=== PATIENT | male | born 1960 | race Caucasian/White ===

== ENCOUNTER 2017-02-22 08:35 | Inpatient (IN) | payer MEDICAID ==
[2017-02-22] MEDS ORDERED: NS 1,000 ML IV ONE ×2 (09:04→10:11)
--- NOTE | 2017-02-22 09:07 | EDPHY ---
H & P Time Seen by Provider: 02/22/17 08:58 HPI/ROS: CHIEF COMPLAINT: Abdominal pain HISTORY OF PRESENT ILLNESS: 56-year-old male presents to the emergency department with left lower quadrant abdominal pain that began 2 days ago. The patient states the pain was gradual in onset and has been constant. He feels that it is getting much worse. He has been unable to eat because he does not have much of an appetite. No nausea or vomiting. No diarrhea. Last bowel was 2 days ago. Subjective fevers and chills. No back pain. No urinary symptoms. He has never had pain like this in the past. No reported trauma. REVIEW OF SYSTEMS: Constitutional: Subjective fevers, chills Eyes: No double or blurry vision. ENT: No sore throat. Respiratory: No cough, no shortness of breath. Cardiac: No chest pain. Gastrointestinal: Abdominal pain as above. No vomiting or diarrhea Genitourinary: No dysuria. Musculoskeletal: No neck or back pain. Skin: No rashes. Neurological: No headache. Past Medical/Surgical History: Appendectomy, prostatitis Social History: and lives in [place] Smoking Status: Current every day smoker Physical Exam: General Appearance: Alert, no distress. Afebrile. No apparent distress. Eyes: Pupils equal and round. Extraocular motions are all intact. ENT: Mouth: Mucous membranes moist. Respiratory: No wheezing, rhonchi, or rales, lungs are clear to auscultation. Cardiovascular: Regular rate and rhythm. Gastrointestinal: Abdomen is soft. Tenderness with palpation in the left lower quadrant. There is no masses palpated. He does have some rebound and some voluntary guarding. No CVA tenderness bilaterally. Neurological: Alert and oriented x 3, cranial nerves II through XII grossly intact Skin: Warm and dry, no rashes. Musculoskeletal: Nontender to palpate along the cervical, thoracic or lumbar spine. Neck is supple. Extremities: Full range of motion and no peripheral edema. Psychiatric: Patient is oriented X 3, there is no agitation. Constitutional: Initial Vital Signs Temperature (C) 36.9 C 02/22/17 08:42 Heart Rate 58 L 02/22/17 08:42 Respiratory Rate 16 02/22/17 08:42 Blood Pressure 108/70 02/22/17 08:42 O2 Sat (%) 98 02/22/17 08:42 O2 Delivery Mode Room Air Allergies/Adverse Reactions: IV CONTRAST Allergy (Uncoded 02/22/17 08:46) Home Medications: Medication Instructions Recorded Flexeril Unk Dose 1 each PO DAILY PRN 02/22/17 Gabapentin [Neurontin 300 MG (*)] 300 mg PO QID 02/22/17 Medical Decision Making - Diagnostics Imaging Results: Imaging Impressions Abdomen CT 02/22/17 09:38 Impression: Acute sigmoid colon diverticulitis with a possible early pericolonic phlegmon, but no evidence of mechanical obstruction. Clinical correlation and follow-up to ensure resolution are recommended. Findings were discussed with LUIS GAMEZ PA-C at 11:00 AM, on 02/22/2017. Imaging: Discussed imaging studies w/ director call Radiologist ED Course/Re-evaluation: An IV was established. The patient was not initially given pain medication as he drove himself to the emergency department. He was kept NPO. Current was normal. CT imaging of the abdomen and pelvis revealed sigmoid diverticulitis. Patient does have possible phlegmon development. No obvious distinct abscess although difficult to appreciate this since contrast dye was not given to the patient. The patient continued to have ongoing pain. He was given IV pain medications. Patient will be admitted. He was given IV Levaquin and IV metronidazole. He will be admitted to the hospitalist. Differential Diagnosis: Including but not limited to diverticulitis, diverticulosis, urinary tract infection, pyelonephritis, kidney stone, volvulus, bowel obstruction - Data Points Laboratory Results: Laboratory Results 02/22/17 08:55 02/22/17 09:04 02/22/17 02/22/17 02/22/17 10:30 09:04 08:55 WBC 12.61 10^3/uL H 10^3/uL (3.80-9.50) RBC 4.89 10^6/uL 10^6/uL (4.40-6.38) Hgb 15.3 g/dL g/dL (13.7-17.5) Hct 42.8 % % (40.0-51.0) MCV 87.5 fL fL (81.5-99.8) MCH 31.3 pg pg (27.9-34.1) MCHC 35.7 g/dL g/dL (32.4-36.7) RDW 12.7 % % (11.5-15.2) Plt Count 231 10^3/uL 10^3/uL (150-400) MPV 10.3 fL fL (8.7-11.7) Neut % (Auto) 77.1 % H % (39.3-74.2) Lymph % (Auto) 12.1 % L % (15.0-45.0) [place] % (Auto) 9.9 % % (4.5-13.0) Eos % (Auto) 0.3 % L % (0.6-7.6) Baso % (Auto) 0.2 % L % (0.3-1.7) Nucleat RBC Rel Count 0.0 % % (0.0-0.2) Absolute Neuts (auto) 9.73 10^3/uL H 10^3/uL (1.70-6.50) Absolute Lymphs (auto) 1.52 10^3/uL 10^3/uL (1.00-3.00) Absolute Monos (auto) 1.25 10^3/uL H 10^3/uL (0.30-0.80) Absolute Eos (auto) 0.04 10^3/uL 10^3/uL (0.03-0.40) Absolute Basos (auto) 0.02 10^3/uL 10^3/uL (0.02-0.10) Absolute Nucleated RBC 0.00 10^3/uL 10^3/uL (0-0.01) Immature Gran % 0.4 % % (0.0-1.1) Immature Gran # 0.05 10^3/uL 10^3/uL (0.00-0.10) Sodium 138 mEq/L mEq/L (134-144) Potassium 4.1 mEq/L mEq/L (3.5-5.2) Chloride 103 mEq/L mEq/L (97-110) Carbon Dioxide 24 mEq/l mEq/l (22-31) Anion Gap 11 mEq/L mEq/L (8-16) BUN 9 mg/dL mg/dL (7-23) Creatinine 1.0 mg/dL mg/dL (0.7-1.3) Estimated GFR > 60 Glucose 93 mg/dL mg/dL (70-100) Calcium 9.5 mg/dL mg/dL (8.5-10.4) Urine Color YELLOW Urine Appearance CLEAR Urine pH 6.0 (5.0-7.5) Ur Specific [place] 1.018 (1.002-1.030) Urine Protein NEGATIVE (NEGATIVE) Urine Ketones TRACE H (NEGATIVE) Urine Blood 1+ H (NEGATIVE) Urine Nitrate NEGATIVE (NEGATIVE) Urine Bilirubin NEGATIVE (NEGATIVE) Urine Urobilinogen NEGATIVE EU EU (0.2-1.0) Ur Leukocyte Esterase NEGATIVE (NEGATIVE) Urine RBC 1-3 /hpf /hpf (0-3) Urine WBC 1-3 /hpf /hpf (0-3) Ur Epithelial Cells NONE SEEN /lpf /lpf (NONE-1+) Urine Mucus TRACE /lpf /lpf (NONE-1+) Urine Glucose NEGATIVE (NEGATIVE) Medications Given: Sodium Chloride (Ns) 1,000 mls @ 125 mls/hr IV CONT ERIC Stop: 08/21/17 15:29 Last Admin: 02/22/17 16:20 Dose: 1,000 mls Discontinued Medications Hydromorphone HCl (Dilaudid) 0.5 mg IVP EDNOW ONE Stop: 02/22/17 11:19 Last Admin: 02/22/17 11:40 Dose: 0.5 mg Sodium Chloride (Ns) 1,000 mls @ 0 mls/hr IV EDNOW ONE; Wide Open PRN Reason: Protocol Stop: 02/22/17 09:05 Last Admin: 02/22/17 09:14 Dose: 1,000 mls Sodium Chloride (Ns) 1,000 mls @ 0 mls/hr IV ONCE ONE PRN Reason: Wide Open Stop: 02/22/17 10:12 Last Admin: 02/22/17 10:14 Dose: 1,000 mls Levofloxacin/Dextrose (Levaquin 750 Mg (Premix)) 150 mls @ 100 mls/hr IV EDNOW ONE PRN Reason: Protocol Stop: 02/22/17 12:47 Last Admin: 02/22/17 12:40 Dose: 150 mls Metronidazole/Sodium Chloride (Flagyl 500 Mg (Premix)) 100 mls @ 100 mls/hr IV EDNOW ONE PRN Reason: Protocol Stop: 02/22/17 12:16 Last Admin: 09/13/17 11:40 Dose: 100 mls Departure - Departure Disposition: [facility] Inpatient Acute Clinical Impression: Diverticulitis Qualifiers: Diverticulitis site: large intestine Diverticulitis bleeding: without bleeding Diverticulitis complication: without perforation or abscess Qualified Code(s): K57.32 - Diverticulitis of large intestine without perforation or abscess without bleeding Condition: Good
[2017-02-22 09:12] LABS: % IMMATURE GRANULYOCYTES 0.4 % (0.0-1.1); ABSOLUTE IMMATURE GRANULOCYTES 0.05 10^3/uL (0.00-0.10); ADD DIFF? NO; ADD MORPH? NO; ADD SCAN? NO; ATYPICAL LYMPHOCYTE FLAG 10 (0-99); FRAGMENT RBC FLAG 0 (0-99); HEMATOCRIT 42.8 % (40.0-51.0); HEMOGLOBIN 15.3 g/dL (13.7-17.5); LEFT SHIFT FLG 0 (0-99); LIPEMIA HEMOLYSIS FLAG 90 (0-99); MEAN CELL HEMOGLOBIN 31.3 pg (27.9-34.1); MEAN CELL HEMOGLOBIN CONCENTR. 35.7 g/dL (32.4-36.7); MEAN CELL VOLUME 87.5 fL (81.5-99.8); MEAN PLATELET VOLUME 10.3 fL (8.7-11.7); PLATELET CLUMPS FLAG 10 (0-99); PLATELET COUNT 231 10^3/uL (150-400); RED BLOOD CELL COUNT 4.89 10^6/uL (4.40-6.38); RED CELL DISTRIBUTION WIDTH 12.7 % (11.5-15.2)
[2017-02-22 09:26] LABS: ANION GAP 11 mEq/L (8-16); CALCIUM 9.5 mg/dL (8.5-10.4); CARBON DIOXIDE 24 mEq/l (22-31); CHLORIDE 103 mEq/L (97-110); GLOMERULAR FILTRATION RATE > 60; GLUCOSE 93 mg/dL (70-100); POTASSIUM 4.1 mEq/L (3.5-5.2); SODIUM 138 mEq/L (134-144)
[2017-02-22] MEDS ORDERED: IOPAMIDOL (ISOVUE-300) 100 ML BTL ONE (09:52)
[2017-02-22 10:45] LABS: COLOR YELLOW; LEUKOCYTE ESTERASE,URINE NEGATIVE (NEGATIVE); NITRITE,URINE NEGATIVE (NEGATIVE)
[2017-02-22 10:46] LABS: MUCUS TRACE /lpf (NONE-1+)
[2017-02-22] MEDS ORDERED: HYDROmorphONE/DILAUDID 1 MG/ML INJ IVP ONE (11:18)
[2017-02-22] MEDS ORDERED: ONDANSETRON DISINTEGRATING 4 MG TAB PO PRN (15:13)
[2017-02-22] MEDS ORDERED: ACETAMINOPHEN 325 MG TAB PO PRN (15:13)
[2017-02-22] MEDS ORDERED: ONDANSETRON 4 MG/2 ML VIAL IVP PRN (15:13)
--- NOTE | 2017-02-22 15:57 | PDCONSULT ---
Curer Acid Drum Note: CC: abd pain HPI: Mr. Curiel is a 56 y/o male with a 2 day hx of lower abd pain that started after a bout of non bloody diarrhea. He presented to the ED today and a CT showed diverticulitis and he was admitted for IV antibiotics. Dr. Alford evaluated him and requested surgical consultation. PMH: appendectomy/hx prostatitis prior heavy drinker meds: Flexeril/Neurontin all: pt reports IV Contrast caused a thrombophlebitis at the injection site/ tolerated IV contrast here this morning SH: lives in [place] ROS: no dysuria, hematuria, pneumaturia last colonoscopy 5 years ago PE: 58-132/70-16-37.7 Pleasant middle aged male in mild distress Abd: soft, distended, tender LLQ with guarding, localized liver edge palpable below costal margin wbc. 12K CT reviewed: sigmoid diverticulitis with focal perforation/no abscess no significant peritoneal fluid, mild atherosclerosis aorto-iliac calcification. Imp: acute diverticulitis with contained perforation/no signs of diffuse peritonitis yet. Rec: IV antibiotics/bowel rest/serial exam check venous lactate
[2017-02-22] MEDS: NS 1,000 ML IV SCH (16:20)
[2017-02-22 16:30] LABS: ALBUMIN 3.8 g/dL (3.5-5.0); BILIRUBIN,TOTAL 0.6 mg/dL (0.1-1.4); BILIRUBIN-CONJUGATED 0.3 mg/dL (0.0-0.5); BILIRUBIN-UNCONJUGATED 0.3 mg/dL (0.0-1.1); TOTAL PROTEIN 5.8 g/dL (6.3-8.2)
--- NOTE | 2017-02-22 16:38 | GHP ---
[f rep st] HISTORY AND PHYSICAL DATE OF ADMISSION: 02/22/2017 CHIEF COMPLAINT: Abdominal pain, diverticulitis. HISTORY OF PRESENT ILLNESS: A 56-year-old male with a history of prior alcohol abuse, presenting with abdominal pain for the last couple days. States that he developed an episode of watery diarrhea with left-sided abdominal pain, cramping in nature. Since that time, he has not been feeling well. He has been having subjective fevers, chills, and sweats. The pain is intermittent. He has not had further diarrhea. No blood in the stool. No nausea or vomiting. Has not had an appetite, thus has had decreased p.o. intake. No cough. No dysuria or urinary frequency. Has a neuropathy at baseline. REVIEW OF SYSTEMS: I completed a 10-point review of systems; negative except as noted in HPI. PAST MEDICAL HISTORY: Neuropathy (he states related to alcohol) and history of alcohol abuse. SURGICAL HISTORY: Appendectomy. SOCIAL HISTORY: Lives in [place]. He frames pictures for a living. Was a significant drinker for 20 years, quit 3 years ago. Just started smoking tobacco 6 months ago. Denies illicit's. FAMILY HISTORY: Father with Alzheimer's. MEDICATIONS: See medication reconciliation. ALLERGIES: None. PHYSICAL EXAMINATION: VITAL SIGNS: Temperature 37.7, blood pressure 132/70, heart rate 50s to 70s, respirations 16, and 99% on room air. GENERAL: Well appearing. Lying in bed in no acute distress. HEENT: PERRLA. EOMI. Oropharynx clear. Mildly dry mucous membranes. CV: Regular rate and rhythm. No murmurs, gallops, or rubs. LUNGS: Clear to auscultation bilaterally. ABDOMEN: Soft. Significant tenderness, left lower quadrant and positive rebound with palpation and auscultation with my stethoscope. Quiet bowel sounds. : No suprapubic tenderness. MUSCULOSKELETAL: 5/5 upper and lower extremity strength. NEURO: 2 through 12 intact. PSYCH: Alert and oriented x3. LABORATORY DATA: WBC 12, hemoglobin 15, hematocrit 42, platelets 231. Lactate is pending. Sodium 138, potassium 4.1, chloride 103, gap 9, creatinine 1, glucose 93. LFTs pending. UA: Trace blood. Abdominal CT: Acute sigmoid diverticulitis with possible early pericolonic phlegmon, but no evidence of mechanical obstruction. ASSESSMENT AND PLAN: 1. Acute diverticulitis: elevated white count and significant pain on exam. Stat lactate. Dr. Manzo with surgery will evaluate. Clear liquids. IV Flagyl and Levaquin. There is no overt abscess, but evidence of phlegmon on CT. If symptoms progress, may need surgical exploration. 2. Leukocytosis: due to #1. afebrile. If fevers, will culture. 3. Acute abdominal pain secondary to diverticulitis. IV Dilaudid p.r.n. Diet: N.p.o. IV fluids. 4. Deep vein thrombosis prophylaxis: Sequential compression devices. DISPOSITION: Patient warrants inpatient admission given the acute diverticulitis and abdominal pain warranting IV antibiotics and pain control. /[id number]/MODL MTDD
[2017-02-22] MEDS: PIPERACILLIN/TAZO 4.5 GM/DEX 100 ML IV SCH ×2 (17:42→21:36)
[2017-02-22] MEDS: HYDROmorphONE/DILAUDID 1 MG/ML INJ IVP PRN ×2 (17:57→22:55)
[2017-02-22] MEDS ORDERED: FLEXERIL PO PRN (17:59)
[2017-02-22] MEDS: GABAPENTIN 300 MG CAP PO SCH (21:36)
[2017-02-23 05:49] LABS: HEMATOCRIT 38.8 % (40.0-51.0); HEMOGLOBIN 13.3 g/dL (13.7-17.5); MEAN CELL HEMOGLOBIN 30.4 pg (27.9-34.1); MEAN CELL HEMOGLOBIN CONCENTR. 34.3 g/dL (32.4-36.7); MEAN CELL VOLUME 88.8 fL (81.5-99.8); RED BLOOD CELL COUNT 4.37 10^6/uL (4.40-6.38); RED CELL DISTRIBUTION WIDTH 12.7 % (11.5-15.2)
[2017-02-23] MEDS: PIPERACILLIN/TAZO 4.5 GM/DEX 100 ML IV SCH ×3 (05:49→21:23)
[2017-02-23] MEDS: NS 1,000 ML IV SCH (05:49)
[2017-02-23] MEDS: GABAPENTIN 300 MG CAP PO SCH ×2 (05:49→12:44)
--- NOTE | 2017-02-23 06:39 | PDCONSULT ---
Wire Straightener Note: Moisés feels a little better. He remains afebrile. His wbc is normal and his venous lactate is normal. He remains tender locally in the LLQ with guarding. I would continue IV Zosyn and clear liquids. Lucio Manzo MD, FACS
[2017-02-23] MEDS ORDERED: CYCLOBENZAPRINE 10 MG TAB PO PRN ×2 (07:05→12:10)
[2017-02-23] MEDS: HYDROmorphONE/DILAUDID 1 MG/ML INJ IVP PRN (08:35)
[2017-02-23] MEDS ORDERED: oxyCODONE IR 5 MG TAB PO PRN (10:49)
[2017-02-23] MEDS: GABAPENTIN 400 MG CAP PO SCH ×3 (12:37→21:23)
--- NOTE | 2017-02-23 13:30 | HOSPPROG ---
Hospitalist Progress Note Assessment/Plan: #Acute diverticulitis: still with pain. Cont IV Zosyn and clear liquids. Negative lactate #Acute abd pain: due to above. PRN opioids #Chronic neuropathy: due to prior Etoh. Gabapentin #h/o Etoh abuse: quit 3 years ago #Diet: clears #DVT: SCDs #Disp: warrants inpatient admission with acute diverticulitis Subjective: 610 LLQ pain Objective: Vital Signs Temp Pulse Resp BP Pulse Ox 36.8 C 48 L 12 104/62 95 02/23/17 11:57 02/23/17 11:57 02/23/17 11:57 02/23/17 11:57 02/23/17 11:57 Laboratory Results 02/23/17 05:06 02/22/17 02/23/17 02/24/17 05:59 05:59 05:59 Intake Total 825 Output Total 2550 Balance -1725 - Physical Exam Constitutional: other Eyes: PERRL Ears, Nose, Mouth, Throat: moist mucous membranes Cardiovascular: regular rate and rhythym, no murmur, rub, or gallop Respiratory: no respiratory distress, no rales or rhonchi Gastrointestinal: normoactive bowel sounds, other (point TTP LLQ, guarding) Genitourinary: no bladder fullness Skin: warm Musculoskeletal: full muscle strength Neurologic: AAOx3, CN II-XII Intact Psychiatric: interacting appropriately ICD10 Worksheet Patient Problems: Problems Problem Status Onset Diverticulitis Acute
--- NOTE | 2017-02-23 15:03 | ASMTCMCOM ---
CM Note CM Note Notes: Reviewed chart for poc and discharge needs. No needs identified at this time. Anticipate home with family when medically stable. Case management available if needs arise. Date Signed: 02/23/2017 03:02 PM Electronically Signed By:Tiffanie Barry RN
[2017-02-23] MEDS ORDERED: GABAPENTIN 400 MG CAP PO SCH (16:00)
[2017-02-24] MEDS: PIPERACILLIN/TAZO 4.5 GM/DEX 100 ML IV SCH ×2 (06:01→14:39)
[2017-02-24] MEDS: GABAPENTIN 400 MG CAP PO SCH ×2 (06:02→12:00)
[2017-02-24 07:23] VITALS: TEMP 98.2; O2SAT 97
[2017-02-24 11:17] VITALS: BP 108/63; PULSE 52; RESP 18
--- NOTE | 2017-02-24 14:55 | GDS ---
[f rep st] DISCHARGE SUMMARY DIAGNOSES: 1. Acute diverticulitis. 2. Abdominal pain. 3. Chronic neuropathy. 4. History of alcohol abuse, now sober for 3 years. HOSPITAL COURSE: A 56-year-old man admitted with acute diverticulitis. He received IV Zosyn with si gnificant improvement. He has been seen by Dr. Manzo as well. On the day of discharge, he tolerated a full breakfast. He does have some ongoing abdominal pain. He had a small bowel movement the day b efore discharge. I think he is safe to switch to oral antibiotics. White count has also gone from 1 2,000 to 8000. We will discharge him with a course of an additional 10 days of Augmentin. He will follow up with Dr Carlos Manzo for consideration of outpatient partial colectomy. I have discussed all this with him, as wel l as strict return precautions. BILLING: I spent more than 30 minutes on the day of discharge, coordinating care. /[id number]/MODL
--- NOTE | 2017-02-24 16:49 | ASDISCHSUM ---
Discharge Information Plan Status:Home with No Needs Medically Cleared to Leave: Discharge Date:02/24/2017 03:39 PM CM D/C Disposition:Home, Routine, Self-Care ADT D/C Disposition:Home, Routine, Self-Care Projected Discharge Date:02/24/2017 03:39 PM Transportation at D/C:Family Discharge Delay Reason: Follow-Up Date:02/24/2017 03:39 PM Discharge Slot: Final Diagnosis: Placement Information Patient Contact Information Contact Name:SANAZ Relationship:Daughter Address: Work Phone: City: [facility] Phone: State/Zip Code: Email: Financial Information Financial Class: Primary Plan Desc:[employer] [place] Primary Plan Number:[id number] Secondary Plan Desc: Secondary Plan Number: Assessment Information [facility] CM Progress Note CM Note CM Note Notes: Reviewed chart for poc and discharge needs. No needs identified at this time. Anticipate home with family when medically stable. Case management available if needs arise. Date Signed: 02/23/2017 03:02 PM Electronically Signed By:Tiffanie Barry RN Intervention Information Intervention Type:*Incorrect Registration Date of Service:02/22/2017 03:22 PM Patient Type:Observation Staff Member:RAJ Monk Susan Hours: Discipline: Severity: Comment:
== END 2017-02-24 15:39 | disposition home or self-care (01) | DRG 392 ==
LOC: F3E 13:23 → OBSVTOIN 15:17
PROVIDERS: ADMIT Internal Medicine; ATTEND Internal Medicine
DX: K57.32 Diverticulitis of large intestine without perforation or abscess without bleeding (principal); G62.89 Other specified polyneuropathies; Z72.0 Tobacco use
CPT/HCPCS: 96365; 96366; J1170; J1956; J2405; J2543; Q9967

== ENCOUNTER 2017-04-21 12:00 | Inpatient (IN) | payer MEDICAID ==
--- NOTE | 2017-04-21 08:47 | PDHPUP ---
History & Physical Update H&P update statement: This history and physical update is based on an assessment of the patient which was completed after admission or registration (within 24 hours), but prior to the surgery/procedure.
[~2017-04-21 12:00] MED LIST: CLINDAMYCIN 900 MG/DEXTROSE 50 ML IV ONE; LR 1,000 ML IV SCH; ONDANSETRON 4 MG/2 ML VIAL IVP ONE; cefOXitin SODIUM 2 GM in D5W 100 ML IV ONE
[2017-04-21] MEDS ORDERED: LIDOCAINE 1% 2 ML INJ ID PRN (13:07)
[2017-04-21] MEDS ORDERED: LR 1,000 ML IV ONE (13:07)
[2017-04-21] MEDS ORDERED: CLINDAMYCIN 900 MG/DEXTROSE/50 ML BAG IV ONE (13:31)
[2017-04-21] MEDS ORDERED: MIDAZOLAM 2 MG/2 ML VIAL IVP ONE (14:42)
--- NOTE | 2017-04-21 14:45 | PDANEPAE ---
ANE History of Present Illness diverticulitis s/f lap assisted descending colectomy ANE Past Medical History - Cardiovascular History Hx Hypertension: No Hx Arrhythmias: No Hx Chest Pain: No Hx Coronary Artery / Peripheral Vascular Disease: No Hx CHF / Valvular Disease: No Hx Palpitations: No - Pulmonary History Hx COPD: No Hx Asthma/Reactive Airway Disease: No Hx Recent Upper Respiratory Infection: No Hx Oxygen in Use at Home: No Hx Sleep Apnea: No Sleep Apnea Screening Result - Last Documented: Negative - Neurologic History Hx Cerebrovascular Accident: No Hx Seizures: No Hx Dementia: No - Endocrine History Hx Diabetes: No Hypothyroid: Yes - Renal History Hx Renal Disorders: No - Liver History Hx Hepatic Disorders: No - Neurological & Psychiatric Hx Hx Neurological and Psychiatric Disorders: Yes Neurological / Psychiatric History Comment: neuropathy r/t etoh abuse - Cancer History Hx Cancer: No - Congenital Disorder History Hx Congenital Disorders: No - GI History Hx Gastrointestinal Disorders: Yes Gastrointestinal History Comment: gerd, gastritis. diverticulitis - Other Health History Other Health History: bruises easily - Chronic Pain History Chronic Pain: No - Surgical History Prior Surgeries: none ANE Review of Systems Review of Systems: - Exercise capacity METS (RN): 4 METS ANE Patient History - Allergies Allergies/Adverse Reactions: IV CONTRAST Allergy (Uncoded 02/22/17 08:46) - Home Medications Home Medications: Cyclobenzaprine [Flexeril 10 MG (*)] 10 mg PO DAILY PRN 02/23/17 [Last Taken 3 Days Ago ~04/18/17] Gabapentin [Neurontin 300 MG (*)] 300 mg PO QID 04/03/17 [Last Taken 04/21/17] Levothyroxine [Synthroid 75 mcg (*)] 75 mcg PO DAILY06 04/03/17 [Last Taken 03/28] - NPO status NPO Status: no food or drink >8 hours NPO Since - Liquids (Date): 04/20/17 NPO Since - Liquids (Time): 19:00 NPO Since - Solids (Date): 04/19/17 - Smoking Hx Smoking Status: Current every day smoker - Alcohol Use Alcohol Use: Sober - Family Anes Hx Family Anes Hx: none Family Hx Anesthesia Complications: none ANE Labs/Vital Signs - Labs - CBC WBC: reviewed - Vital Signs Blood Pressure: 127/80 Heart Rate: 59 Respiratory Rate: 16 O2 Sat (%): 96 Height: 177.8 cm Weight: 65.771 kg ANE Physical Exam - Airway Neck exam: FROM Mallampati Score: Class 1 Mouth exam: normal dental/mouth exam (dd) - Pulmonary Pulmonary: no respiratory distress (ddd) - Cardiovascular Cardiovascular: regular rate and rhythym - ASA Status ASA Status: II ANE Anesthesia Plan Anesthesia Plan: general endotracheal anesthesia (R/B/A explained and pt. agrees to proceed)
[2017-04-21] MEDS ORDERED: BUPIVACAINE 0.5% 30 ML SDV ONE (14:54)
[2017-04-21] MEDS ORDERED: PROPOFOL/EMULSION 500 MG/50 ML BOTTLE IV ONE (15:11)
[2017-04-21] MEDS ORDERED: ROCURONIUM 100 MG/10 ML VIAL ONE (15:11)
[2017-04-21] MEDS ORDERED: LIDOCAINE 2% 100 MG/5 ML SYR ONE (15:11)
[2017-04-21] MEDS ORDERED: ONDANSETRON 4 MG/2 ML VIAL ONE (15:11)
[2017-04-21] MEDS ORDERED: DEXAMETHASONE 4 MG/ML VIAL ONE ×2 (15:11)
[2017-04-21] MEDS ORDERED: fentaNYL 100 MCG/2 ML INJ ONE ×3 (15:11→18:59)
[2017-04-21] MEDS ORDERED: LIDOCAINE HCL 160 MG/4 ML LTA KIT TP ONE (15:19)
[2017-04-21] MEDS ORDERED: epHEDrine SULFATE 10 MG/ML SYR ONE ×2 (15:34)
[2017-04-21] MEDS ORDERED: BUPIVACAINE 0.25% 30 ML SDV ONE (15:41)
[2017-04-21] MEDS ORDERED: PHENYLEPHRINE HCL 100 MCG/ML SYR ONE (15:42)
[2017-04-21] MEDS ORDERED: PROPOFOL 200 MG/20 ML VIAL ONE (16:53)
[2017-04-21] MEDS ORDERED: SUGAMMADEX SODIUM 200 MG/2 ML VIAL IVP ONE (17:06)
--- NOTE | 2017-04-21 17:26 | POSTOPPROG ---
Post Op Note Date of Operation: 04/21/17 Surgeon: Keyon Manzo (, FACS) Finance Intern: Snow Atkins RN-FA Anesthesiologist: Elder Christianson MD Anesthesia: GET(General Endotracheal) Pre-op Diagnosis: diverticulitis Post-op Diagnosis: same Procedure: lap sigmoid colectomy Findings: chronic inflammation sigmoid colon Inf/Abcess present in the surg proc area at time of surgery?: No EBL: 50-100 (100 ml)
[2017-04-21] MEDS ORDERED: PROMETHAZINE HCL 25 MG/ML INJ IVP PRN ×2 (17:27→17:46)
[2017-04-21] MEDS ORDERED: ONDANSETRON 4 MG/2 ML VIAL IVP PRN ×2 (17:27→17:46)
[2017-04-21] MEDS ORDERED: HYDROmorphONE/DILAUDID 1 MG/ML INJ ONE ×2 (17:43→18:15)
[2017-04-21] MEDS: HYDROmorphONE/DILAUDID 1 MG/ML INJ IVP PRN ×3 (17:43→18:03)
[2017-04-21] MEDS ORDERED: METOCLOPRAMIDE 10 MG/2 ML VIAL IVP PRN (17:46)
[2017-04-21] MEDS ORDERED: OXYCODONE/APAP 5/325 TAB PO PRN (17:46)
[2017-04-21] MEDS ORDERED: DEXAMETHASONE 4 MG/ML VIAL IVP PRN (17:46)
[2017-04-21] MEDS ORDERED: ACETAMINOPHEN 500 MG TAB PO PRN (17:46)
[2017-04-21] MEDS ORDERED: MEPERIDINE 25 MG/ML SYR IVP PRN (17:46)
[2017-04-21] MEDS ORDERED: ALBUTEROL 3 ML DEYVIAL IH PRN (17:46)
[2017-04-21] MEDS ORDERED: LR 500 ML IV PRN (17:46)
[2017-04-21] MEDS ORDERED: LABETALOL HCL 50 MG/10 ML SYR IVP PRN (17:46)
[2017-04-21] MEDS ORDERED: NALOXONE HCL 0.4 MG/ML INJ IVP PRN (17:46)
[2017-04-21] MEDS ORDERED: HYDROCODONE/APAP 5/325 TAB PO PRN (17:46)
--- NOTE | 2017-04-21 17:49 | POSTANESTH ---
Post Anesthetic Evaluation Cardiovascular Status: Normal, Stable Respiratory Status: Normal, Stable Level of Consciousness/Mental Status: Can Participate in Eval Pain Control: Inadeq, Add Tx Required Nausea/Vomiting Control: Adequate, Prn Tx Ordered Complications Possibly Related to Anesthesia: None Noted
[2017-04-21] MEDS: fentaNYL 100 MCG/2 ML INJ IVP PRN ×4 (18:18→19:10)
[2017-04-21] MEDS: HYDROmorphone HCL/NS/PF 0.4 MG/2 ML SYR IVP PRN ×3 (19:28→23:11)
[2017-04-21] MEDS: D5W 1/2 NS W/ 20 KCl/L 1,000 ML IV SCH (19:28)
[2017-04-21] MEDS: GABAPENTIN 300 MG CAP PO SCH ×2 (19:38→20:16)
[2017-04-21] MEDS: LEVOTHYROXINE 75 MCG TAB PO SCH (19:59)
[2017-04-21] MEDS: cefOXitin SODIUM 2 GM in D5W 100 ML IV SCH (20:08)
[2017-04-21] MEDS: GABAPENTIN 400 MG CAP PO SCH (20:08)
[2017-04-21] MEDS: OXYCODONE/APAP 5/325 TAB PO PRN (20:50)
[2017-04-21 21:36] LABS: HEMATOCRIT 40.9 % (40.0-51.0); HEMOGLOBIN 14.6 g/dL (13.7-17.5)
--- NOTE | 2017-04-21 22:34 | GOP ---
[f rep st] OPERATIVE REPORT DATE OF OPERATION: 04/21/2017 SURGEON: Keyon Manzo MD, FACS SCROLL SAW OPERATOR: GARCIA Holland ANESTHESIA: General endotracheal. ANESTHESIOLOGIST: Elder Christianson MD PREOPERATIVE DIAGNOSIS: Diverticulitis. POSTOPERATIVE DIAGNOSIS: Diverticulitis. PROCEDURE PERFORMED: Laparoscopic-assisted sigmoid colectomy. FINDINGS: Chronic inflammatory changes of the sigmoid colon. No active infection present at time of surgery. Adhesions to the bladder without evidence of colovesical fistula. ESTIMATED BLOOD LOSS: 100 mL. DESCRIPTION OF PROCEDURE: After informed consent was obtained, the patient was brought to the operating room and placed under general anesthesia. He was positioned in lithotomy carefully padding all pressure points. A Ray catheter was placed using sterile technique. The abdomen and perineum were sterilely prepped and draped in usual fashion. Before proceeding, a time-out and identification of patient was performed. The patient received 2 g of Mefoxin and 600 mg of clindamycin intravenously within 30 minutes of cut time and underwent mechanical and antibiotic bowel protocol preoperatively. The abdomen was entered from the supraumbilical position establishing a 10 mm port and pneumoperitoneum was established with CO2 gas to a pressure of 15 mmHg. A 30-degree scope was introduced and the peritoneal cavity was visualized. Additional 5 mm ports were placed in the suprapubic right lower quadrant and left lower quadrant positions. This allowed introduction of atraumatic grasping forceps. The sigmoid colon was decompressed and densely adherent to the anterior abdominal wall, left pelvic sidewall, and bladder. The proximal colon appeared decompressed and without too many diverticula. The diverticula appeared to be most concentrated in the sigmoid area but none appeared actively inflamed. The small bowel was brought out of the pelvis by placing the bed in Trendelenburg position. The Harmonic Scalpel was used to take down the adhesions to the pelvic sidewall, left lateral abdominal wall, and bladder. Once the colon had been fully freed, the mesentery was dispatched with the Harmonic Scalpel taking the larger vessels with advanced hemostasis settings. After the bowel was mobilized proximal and distal to the diverticular bearing segment, an access incision was made at the site of the 5 mm port approximately 6 cm in length. Dissection carried out through the abdominal wall. An Hill wound protector (small) was deployed. Sigmoid colon was brought up through the Hill wound protector and the remaining mesentery at the resection sites was cleared. Arielle clamps were applied to the bowel proximally and distally. The bowel was divided and removed from the field. A 2 -layered hand-sewn end-to-end anastomosis was then performed between the descending colon and the distal sigmoid colon as follows. Posterior row was completed with interrupted 3-0 Vicryl sutures. The inner posterior row was completed with 3-0 Vicryl running suture. This was continued anteriorly in mucosal inverting fashion. The final anterior outer row of the anastomosis was performed with interrupted 3-0 Vicryl sutures in a Lembert fashion. Once complete, the anastomosis was intact without undue tension. It was returned to its anatomic position. The pelvis and lower abdomen were irrigated with warm normal saline until the effluent was clear. Hemostasis appeared secure. All ports were removed. The Hill wound protector was removed and a complete change of gown, gloves, instruments, and drapes was performed for clean closure. Peritoneum was closed with 2-0 Vicryl suture, fascia was closed with # 1 PDS suture. Umbilical fascia was closed with 0 Vicryl suture. The skin of the access incision was closed with pushpa. Remaining incisions were closed with 4-0 Monocryl suture in a subcuticular fashion. Needle, sponge, instrument counts were correct. COMPLICATIONS: None. /[id number]/MODL MTDD
[2017-04-22] MEDS: cefOXitin SODIUM 2 GM in D5W 100 ML IV SCH (01:56)
[2017-04-22] MEDS: OXYCODONE/APAP 5/325 TAB PO PRN ×4 (02:18→20:18)
[2017-04-22] MEDS: GABAPENTIN 400 MG CAP PO SCH ×4 (04:57→20:18)
[2017-04-22] MEDS: LEVOTHYROXINE 75 MCG TAB PO SCH (04:57)
[2017-04-22] MEDS: D5W 1/2 NS W/ 20 KCl/L 1,000 ML IV SCH ×2 (04:57→15:41)
[2017-04-22] MEDS: HYDROmorphone HCL/NS/PF 0.4 MG/2 ML SYR IVP PRN ×3 (04:58→11:33)
[2017-04-22 05:35] LABS: % IMMATURE GRANULYOCYTES 0.4 % (0.0-1.1); ABSOLUTE IMMATURE GRANULOCYTES 0.05 10^3/uL (0.00-0.10); ADD DIFF? NO; ADD MORPH? NO; ADD SCAN? NO; ATYPICAL LYMPHOCYTE FLAG 0 (0-99); FRAGMENT RBC FLAG 0 (0-99); HEMATOCRIT 39.3 % (40.0-51.0); HEMOGLOBIN 13.7 g/dL (13.7-17.5); LEFT SHIFT FLG 0 (0-99); LIPEMIA HEMOLYSIS FLAG 90 (0-99); MEAN CELL HEMOGLOBIN 29.9 pg (27.9-34.1); MEAN CELL HEMOGLOBIN CONCENTR. 34.9 g/dL (32.4-36.7); MEAN CELL VOLUME 85.8 fL (81.5-99.8); MEAN PLATELET VOLUME 9.9 fL (8.7-11.7); PLATELET CLUMPS FLAG 0 (0-99); PLATELET COUNT 256 10^3/uL (150-400); RED BLOOD CELL COUNT 4.58 10^6/uL (4.40-6.38); RED CELL DISTRIBUTION WIDTH 12.6 % (11.5-15.2)
[2017-04-22 05:45] LABS: ANION GAP 12 mEq/L (8-16); CALCIUM 9.2 mg/dL (8.5-10.4); CARBON DIOXIDE 25 mEq/l (22-31); CHLORIDE 104 mEq/L (97-110); CREATININE 0.8 mg/dL (0.7-1.3); GLOMERULAR FILTRATION RATE > 60; GLUCOSE 133 mg/dL (70-100); POTASSIUM 4.8 mEq/L (3.5-5.2); SODIUM 141 mEq/L (134-144)
[2017-04-22] MEDS: ENOXAPARIN 40 MG/0.4 ML SYR SC SCH (07:50)
[2017-04-22] MEDS: CYCLOBENZAPRINE 10 MG TAB PO PRN (07:51)
--- NOTE | 2017-04-22 08:55 | SOAPPROG ---
SOAP Progress Note Assessment/Plan: Assessment: s/p lap sigmoid colectomy/post op ileus Plan:continue clear liquids/IV fluids increase activity 04/22/17 08:53 Subjective: resting comfortably/tolerated clear liquid sips/no flatus Objective: Vital Signs Temp Pulse Resp BP Pulse Ox 36.8 C 61 16 110/67 94 04/22/17 07:41 04/22/17 07:41 04/22/17 07:41 04/22/17 07:41 04/22/17 07:41 Laboratory Results 04/22/17 04:57 04/22/17 04:57 04/21/17 04/22/17 04/23/17 05:59 05:59 05:59 Intake Total 1300 Output Total 1850 Balance -550 Physical Exam - Physical Exam General Appearance: no apparent distress Respiratory: lungs clear, normal breath sounds Cardiac/Chest: regular rate, rhythm Abdomen: normal bowel sounds, soft, distended Rectal: deferred Neuro/Psych: alert, normal mood/affect, oriented x 3 ICD10 Worksheet Patient Problems: Problems Problem Status Onset Diverticulitis Acute
[2017-04-22] MEDS ORDERED: NON-FORMULARY NEW DRUG (Gabapentin [Neurontin] 800 MG) PO SCH (12:00)
--- NOTE | 2017-04-22 15:24 | ASMTCASEMG ---
Living Arrangements What is your living Answers: Alone arrangement? Who do you live with? Type Of Residence What kind of residence do Answers: House you live in? Discharge Plan Comments Coordination Status Comments Notes: Pt is a 56 y/o man admitted for diverticulitis. Pt is post op day 1. No therapies ordered at this time. Ancitipates that pt will d/c independent when medically stable. CM available for d/c needs. Date Signed: 04/22/2017 03:23 PM Electronically Signed By:ELSY Jarvis
[2017-04-23] MEDS: D5W 1/2 NS W/ 20 KCl/L 1,000 ML IV SCH (02:06)
[2017-04-23] MEDS: OXYCODONE/APAP 5/325 TAB PO PRN ×4 (02:26→19:38)
[2017-04-23 05:33] LABS: HEMATOCRIT 37.1 % (40.0-51.0); HEMOGLOBIN 12.9 g/dL (13.7-17.5); MEAN CELL HEMOGLOBIN 29.9 pg (27.9-34.1); MEAN CELL HEMOGLOBIN CONCENTR. 34.8 g/dL (32.4-36.7); MEAN CELL VOLUME 86.1 fL (81.5-99.8); RED BLOOD CELL COUNT 4.31 10^6/uL (4.40-6.38); RED CELL DISTRIBUTION WIDTH 12.9 % (11.5-15.2)
[2017-04-23] MEDS: GABAPENTIN 400 MG CAP PO SCH ×4 (06:10→20:14)
[2017-04-23] MEDS: LEVOTHYROXINE 75 MCG TAB PO SCH (06:10)
--- NOTE | 2017-04-23 07:11 | SOAPPROG ---
DAISHA Progress Note Assessment/Plan: Assessment: s/p lap sigmoid colectomy/post op ileus-resolving Plan:advance to full liquids increase activity DC IV anticipate discharge tomorrow 04/22/17 08:53 04/23/17 07:10 Subjective: passing some liquid stool/tolerated clear liquids Objective: Vital Signs Temp Pulse Resp BP Pulse Ox 36.9 C 54 L 16 131/84 H 95 04/23/17 04:00 04/23/17 04:00 04/23/17 04:00 04/23/17 04:00 04/23/17 04:00 Laboratory Results 04/23/17 04:29 04/22/17 04:57 04/22/17 04/23/17 04/24/17 05:59 05:59 05:59 Intake Total 1300 3350 Output Total 1850 2000 Balance -550 1350 Physical Exam - Physical Exam General Appearance: alert, no apparent distress Abdomen: normal bowel sounds, non-tender, soft, other (incisions o.k.) ICD10 Worksheet Patient Problems: Problems Problem Status Onset Diverticulitis Acute
[2017-04-23] MEDS: SENNOSIDES/DOCUSATE SODIUM TAB PO SCH ×2 (08:56→20:13)
[2017-04-23] MEDS: CYCLOBENZAPRINE 10 MG TAB PO PRN (08:56)
[2017-04-23] MEDS: ENOXAPARIN 40 MG/0.4 ML SYR SC SCH (08:58)
[2017-04-24] MEDS: GABAPENTIN 400 MG CAP PO SCH ×3 (06:07→16:12)
[2017-04-24] MEDS: OXYCODONE/APAP 5/325 TAB PO PRN ×2 (06:07→12:45)
[2017-04-24] MEDS: LEVOTHYROXINE 75 MCG TAB PO SCH (06:08)
[2017-04-24 08:24] VITALS: RESP 16; O2SAT 93
[2017-04-24] MEDS: SENNOSIDES/DOCUSATE SODIUM TAB PO SCH (09:15)
[2017-04-24] MEDS: ENOXAPARIN 40 MG/0.4 ML SYR SC SCH (09:18)
[2017-04-24] MEDS ORDERED: PNEUMOCOCCAL 0.5ML VACCINE VIAL IM ONE (11:00)
[2017-04-24] MEDS ORDERED: FLU VACC QS 2017-18 (3YR+)/PF 0.5 ML SYR (FLUARIX QUAD) IM ONE (11:00)
[2017-04-24 11:10] VITALS: BP 114/68; PULSE 54; TEMP 98.5
--- NOTE | 2017-04-24 13:38 | SOAPPROG ---
SOAP Progress Note Assessment/Plan: Assessment: s/p lap sigmoid colectomy/post op ileus-resolving Plan:advance to low residue increase activity DC IV anticipate discharge later today 04/22/17 08:53 04/23/17 07:10 04/24/17 13:38 Subjective: tolerated full liquids passing flatus and stool Objective: Vital Signs Temp Pulse Resp BP Pulse Ox 36.9 C 54 L 16 114/68 93 04/24/17 11:08 04/24/17 11:08 04/24/17 11:08 04/24/17 11:08 04/24/17 11:08 Laboratory Results 04/23/17 04:29 04/22/17 04:57 04/23/17 04/24/17 04/25/17 05:59 05:59 05:59 Intake Total 3350 3000 Output Total 2000 Balance 1350 3000 - Pending Discharge Pending Discharge Within 24 Hours: Yes Pending Discharge Date: 04/25/17 Pending Discharge Time: 11:00 Physical Exam - Physical Exam General Appearance: no apparent distress Abdomen: non-tender, soft, other (incisions healing without signs of infection) ICD10 Worksheet Patient Problems: Problems Problem Status Onset Diverticulitis Acute
--- NOTE | 2017-04-25 09:44 | ASDISCHSUM ---
Discharge Information Plan Status:Home with No Needs Medically Cleared to Leave:04/23/2017 Discharge Date:04/24/2017 05:30 PM D/C Disposition: ADT D/C Disposition:Home, Routine, Self-Care Projected Discharge Date:04/24/2017 12:00 AM Transportation at D/C: Discharge Delay Reason: Follow-Up Date:04/24/2017 12:00 AM Discharge Slot: Final Diagnosis: Placement Information Patient Contact Information Contact Name:SANAZ Relationship:Daughter Address: Work Phone: City: [facility] Phone: State/Zip Code: Email: Financial Information Financial Class: Primary Plan Desc:[employer] IP Primary Plan Number:[id number] Secondary Plan Desc: Secondary Plan Number: Assessment Information [facility] Initial CM Assessment Living Arrangements What is your living Answers: Alone arrangement? Who do you live with? Type Of Residence What kind of residence do Answers: House you live in? Discharge Plan Comments Coordination Status Comments Notes: Pt is a 56 y/o man admitted for diverticulitis. Pt is post op day 1. No therapies ordered at this time. Ancitipates that pt will d/c independent when medically stable. CM available for d/c needs. Date Signed: 04/22/2017 03:23 PM Electronically Signed By:ELSY Jarvis Intervention Information
== END 2017-04-24 17:30 | disposition home or self-care (01) | DRG 330 ==
LOC: F3E 12:19
PROVIDERS: ADMIT Surgery; ATTEND Surgery
PROC: 0D1 Gastrointestinal System, Bypass (ICD-10-PCS; principal; 2017-04-21 13:45)
PROC: 0DBN4ZZ Excision of Sigmoid Colon, Percutaneous Endoscopic Approach (ICD-10-PCS; principal; 2017-04-21 13:45)
DX: K57.20 Diverticulitis of large intestine with perforation and abscess without bleeding (principal); K91.89 Other postprocedural complications and disorders of digestive system; E03.9 Hypothyroidism, unspecified; M54.9 Dorsalgia, unspecified; F17.210 Nicotine dependence, cigarettes, uncomplicated
CPT/HCPCS: G0008; G0009; J0694; J1100; J1170; J1650; J2001; J2250; J2370; J2405; J2704; J3010

== ENCOUNTER 2018-02-15 13:45 | Emergency (ER) | payer SELFPAY ==
[2018-02-15 14:30] LABS: PLATELET COUNT 278 10^3/uL (150-400)
[2018-02-15] MEDS ORDERED: IOPAMIDOL (ISOVUE-300) 100 ML BTL ONE (15:14)
--- NOTE | 2018-02-15 16:12 | EDPHY ---
H & P Smoking Status: Light smoker Time Seen by Provider: 02/15/18 14:09 HPI/ROS: CHIEF COMPLAINT: Rectal pain HISTORY OF PRESENT ILLNESS: 57-year-old male presents to the emergency department with severe pain in his rectum for the last 2 days. Patient denies any known trauma or injury. He states that he has had chronic diarrhea over the last year and half. He was treated with antibiotics for Clostridium difficile over 9 months ago. He had 1 episode of diarrhea earlier today. He has had no rectal bleeding. No discharge from his anus. He denies anal intercourse. He felt feverish and chilled yesterday although did not take his temperature. He denies nausea or vomiting. Denies abdominal pain. REVIEW OF SYSTEMS: Constitutional: No fever, no chills. Eyes: No double or blurry vision. ENT: No sore throat. Respiratory: No cough, no shortness of breath. Cardiac: No chest pain. Gastrointestinal: No abdominal pain, vomiting or diarrhea. Genitourinary: No dysuria, urgency or frequency with urination. Musculoskeletal: No neck or back pain. Skin: No rashes. Neurological: No headache. (Patricia Rosenberg) Past Medical/Surgical History: Appendectomy, chronic diarrhea (Shakira,Patricia M) Social History: and lives in [place] (Shakira,Patricia M) Physical Exam: General Appearance: Alert, no distress. Eyes: Pupils equal and round. Extraocular motions are all intact. ENT: Mouth: Mucous membranes moist. Respiratory: No wheezing, rhonchi, or rales, lungs are clear to auscultation. Cardiovascular: Regular rate and rhythm. Gastrointestinal: Abdomen is soft and nontender, no masses, no rebound or guarding, bowel sounds normal. Neurological: Alert and oriented x 3, cranial nerves II through XII grossly intact Skin: Warm and dry, no rashes. Rectal exam: Normal sphincter tone. Unable to introduce a finger be on 1 cm secondary to severe pain. Normal stool color. No bright red blood per rectum. No external hemorrhoids noted. Musculoskeletal: Nontender to palpate along the cervical, thoracic or lumbar spine. Neck is supple. Extremities: Full range of motion and no peripheral edema. Psychiatric: Patient is oriented X 3, there is no agitation. (Jennifer Rosenberga M) Constitutional: Initial Vital Signs Temperature (C) 37.3 C 02/15/18 13:54 Heart Rate 63 02/15/18 13:54 Respiratory Rate 16 02/15/18 13:54 Blood Pressure 97/78 L 02/15/18 13:54 O2 Sat (%) 95 02/15/18 13:54 O2 Delivery Mode Room Air Allergies/Adverse Reactions: No Known Allergies Allergy (Unverified 02/15/18 13:59) Home Medications: Medication Instructions Recorded Cyclobenzaprine [Flexeril 10 MG 10 mg PO DAILY PRN 02/23/17 (*)] Levothyroxine [Synthroid 75 mcg 75 mcg PO DAILY06 04/03/17 (*)] Gabapentin [Neurontin] 800 mg PO QID 04/21/17 Gabapentin [Neurontin 400 MG (*)] 800 mg PO QID cap 04/24/17 Sennosides/Docusate Sodium 1 tab PO BID tab 04/24/17 [Senokot-S] oxyCODONE/APAP 5/325 [Percocet 1 - 2 tab PO Q4HRS PRN #30 tab 04/24/17 5/325 (*)] Medical Decision Making - Diagnostics Imaging: Discussed imaging studies w/ electronics lead Radiologist - Diagnostics Imaging Results: Imaging Impressions Abdomen CT 02/15/18 15:07 Impression: 1. Findings compatible with perirectal abscess. These findings were discussed with Dr. Rosenberg by telephone at 4:00 PM on 2017. ED Course/Re-evaluation: 57-year-old male presents to the emergency department with severe rectal pain. An IV was established the patient had laboratory studies drawn. White blood cell count is elevated over 13,000. Chemistries were normal. On examination unable to perform rectal exam secondary to severe pain. I was worried about proctitis versus possible abscess. CT imaging of the abdomen pelvis was ordered with IV contrast revealing. Anal abscess measuring 2.5 x 1.7 cm. Case was discussed with Dr. Kurt Blackburn, secondary supervising physician, who did not directly evaluate the patient but agrees with treatment and plan. 1625: I spoke with Dr. Shawn Slade who will come to evaluate the patient in the emergency department. The patient was kept NPO He states he last ate ice cream this morning. (Patricia Rosenberg) I took over care of this patient at 5:30 p.m.. 6:45 p.m., the patient has been seen and treated by Dr. Shawn Slade. The patient has been cleared for discharge by Dr. Slade. Dr. Slade does not feel the patient needs antibiotics. The patient will follow up with Dr. Slade in the office next week. He has been provided with abscess I and D instructions. The patient understands his follow-up and home care. All of his questions were answered. Return to emergency department precautions reviewed with him. He was discharged in good condition. (Kurt Blackburn) Differential Diagnosis: Including but not limited to the proctitis, diverticulitis, perirectal abscess, perianal abscess, prostatitis, urinary tract infection (Patricia Rosenberg) - Data Points Laboratory Results: Laboratory Results 02/15/18 14:16 02/15/18 14:16 02/15/18 02/15/18 02/15/18 15:40 14:16 14:16 WBC 13.20 10^3/uL H 10^3/uL (3.80-9.50) RBC 4.87 10^6/uL 10^6/uL (4.40-6.38) Hgb 14.5 g/dL g/dL (13.7-17.5) Hct 41.9 % % (40.0-51.0) MCV 86.0 fL fL (81.5-99.8) MCH 29.8 pg pg (27.9-34.1) MCHC 34.6 g/dL g/dL (32.4-36.7) RDW 12.5 % % (11.5-15.2) Plt Count 278 10^3/uL 10^3/uL (150-400) MPV 9.6 fL fL (8.7-11.7) Neut % (Auto) 73.6 % % (39.3-74.2) Lymph % (Auto) 14.2 % L % (15.0-45.0) [place] % (Auto) 11.1 % % (4.5-13.0) Eos % (Auto) 0.5 % L % (0.6-7.6) Baso % (Auto) 0.4 % % (0.3-1.7) Nucleat RBC Rel Count 0.0 % % (0.0-0.2) Absolute Neuts (auto) 9.72 10^3/uL H 10^3/uL (1.70-6.50) Absolute Lymphs (auto) 1.87 10^3/uL 10^3/uL (1.00-3.00) Absolute Monos (auto) 1.47 10^3/uL H 10^3/uL (0.30-0.80) Absolute Eos (auto) 0.06 10^3/uL 10^3/uL (0.03-0.40) Absolute Basos (auto) 0.05 10^3/uL 10^3/uL (0.02-0.10) Absolute Nucleated RBC 0.00 10^3/uL 10^3/uL (0-0.01) Immature Gran % 0.2 % % (0.0-1.1) Immature Gran # 0.03 10^3/uL 10^3/uL (0.00-0.10) Sodium 138 mEq/L mEq/L (135-145) Potassium 4.2 mEq/L mEq/L (3.3-5.0) Chloride 102 mEq/L mEq/L (97-110) Carbon Dioxide 27 mEq/l mEq/l (22-31) Anion Gap 9 mEq/L mEq/L (8-16) BUN 8 mg/dL mg/dL (7-23) Creatinine 0.8 mg/dL mg/dL (0.7-1.3) Estimated GFR > 60 Glucose 87 mg/dL mg/dL (70-100) Calcium 9.4 mg/dL mg/dL (8.5-10.4) Urine Color YELLOW Urine Appearance CLEAR Urine pH 7.0 (5.0-7.5) Ur Specific [place] 1.009 (1.002-1.030) Urine Protein NEGATIVE (NEGATIVE) Urine Ketones NEGATIVE (NEGATIVE) Urine Blood NEGATIVE (NEGATIVE) Urine Nitrate NEGATIVE (NEGATIVE) Urine Bilirubin NEGATIVE (NEGATIVE) Urine Urobilinogen NEGATIVE EU EU (0.2-1.0) Ur Leukocyte Esterase NEGATIVE (NEGATIVE) Urine Glucose NEGATIVE (NEGATIVE) Departure - Departure Disposition: Home, Routine, Self-Care Clinical Impression: Perianal abscess Condition: Good Instructions: Rectal Abscess (ED) Additional Instructions: Read and follow provided instructions. Follow-up with Dr. Slade, your treating surgeon, next week for re-evaluation as discussed with him. Ibuprofen dosin mg every 6 hours with meals for the next 3 days only. Take only as needed for pain. Return to the emergency department for worsening pain, bleeding, fever, chills or other serious concerns. Referrals: Shawn Slade MD [Medical Doctor] - As per Instructions
[2018-02-15 19:15] VITALS: BP 116/74
--- NOTE | 2018-02-15 19:47 | GCON ---
DATE OF CONSULTATION: 02/15/2018 REFERRING PHYSICIAN: IVETTE Rueda REASON FOR EVALUATION: Perirectal abscess. 57-year-old male with a 3-day history of worsening rectal pain. He has a longstanding history of chronic diarrhea. He has been seen by GI service with unremarkable colonoscopies. He reports that his pain continued to worsen. In the emergency room this evening, he was beginning to have left leg pain as well. He denies fevers or chills. He denies abdominal complaints. He has been voiding normally for him. PAST MEDICAL HISTORY: Diverticulitis. PAST SURGICAL HISTORY: Appendectomy. MEDICATIONS: Probiotics. ALLERGIES: No known drug allergies. SOCIAL: Remote history of alcohol use. No current alcohol or tobacco. FAMILY HISTORY: Noncontributory. REVIEW OF SYSTEMS: Notable for acute GI complaints as well as chronic diarrhea only. PHYSICAL EXAM: VITAL SIGNS: Temperature 37.3, blood pressure 116/74, pulse 88 , respirations 16. GENERAL: Patient is alert, appropriate, comfortable, anicteric. No cervical lymphadenopathy. HEART: Regular. LUNGS: Clear. ABDOMEN: Soft, nontender. ANAL: Normal external anal exam without erythema or external fluctuance. Exquisite tenderness left posterior midline. No fissures. MARTHA and anoscopy deferred. PROCEDURE NOTE: The rectum was infiltrated 1% lidocaine. An 18-gauge seeker needle was passed into the posterior midline abscess cavity, confirming its epicenter. A large circular incision was created around the anus. The cavity was opened and completely drained. No immediate complications occurred. IMPRESSION: First time perirectal abscess, status post bedside drainage. PLAN: Local wound care instructions explained to the patient. Will plan to follow up in office in 1 week. Recurrence risks as well as fistula formation risks were discussed. All questions were entertained upon completion. /[id number]/MODL MTDD
== END 2018-02-15 19:14 | disposition home or self-care (01) ==
PROC: 0D9QXZZ Drainage of Anus, External Approach (ICD-10-PCS; principal; 2018-02-15)
DX: K61.0 Anal abscess (principal)
CPT/HCPCS: Q9967